=== PATIENT | male | born 1995 | race Two or more races ===

== ENCOUNTER 2021-05-26 21:28 | Emergency (ER) | payer OTHER ==
[~2021-05-26] VITALS: Ht 165.1 cm; Wt 63.0 kg
[2021-05-26] MEDS ORDERED: ADVIL (22:49)
[2021-05-26] MEDS ORDERED: BUTALBIT-ACETA1 EACH PO (23:00)
== END 2021-05-26 23:27 | disposition home or self-care (01) ==
LOC: ER 21:28
DX: G43.909 Migraine, unspecified, not intractable, without status migrainosus (principal)

== ENCOUNTER 2021-06-04 05:48 | Emergency (ER) | payer OTHER ==
[~2021-06-04] VITALS: Ht 157.5 cm; Wt 72.6 kg
[~2021-06-04 05:48] MED LIST: ADVIL; BUTALBIT-ACETA1 EACH PO
[2021-06-04] MEDS ORDERED: TENCON 50-3251 EACH PO (11:40)
== END 2021-06-04 12:53 ==
LOC: ER 05:48
DX: G43.909 Migraine, unspecified, not intractable, without status migrainosus (principal); R51.9 Headache, unspecified

== ENCOUNTER 2024-07-07 08:27 | Emergency (ER) | payer OTHER ==
[~2024-07-07] VITALS: Ht 165.1 cm; Wt 59.9 kg
[~2024-07-07 08:27] MED LIST changes: +TENCON 50-3251 EACH PO
[2024-07-07] MEDS ORDERED: ORPHENADRINE CITRATE 30 MG/ML AMPUL IM STA (08:54)
[2024-07-07] MEDS ORDERED: KETOROLAC TROMETHAMINE 60 MG VIAL IM STA (08:54)
[2024-07-07] MEDS ORDERED: ORPHENADRINE CITRATE 30 MG/ML AMPUL ONE (08:57)
[2024-07-07] MEDS ORDERED: KETOROLAC TROMETHAMINE 60 MG VIAL IM ONE (08:58)
== END 2024-07-07 12:02 | disposition home or self-care (01) ==
LOC: ER 08:28
DX: R51.9 Headache, unspecified (principal)